=== PATIENT | female | born 1970 | race Caucasian/White ===

== ENCOUNTER 2019-08-31 17:00 | Outpatient (RCR) | payer OTHER, SELFPAY ==
--- NOTE | 2019-07-25 07:55 | HP.PTEVAL ---
Patient's Visit Information DELLA PEREZ is a 48 year old F referred to Physical Therapy by Karen Fairbanks NP-C with a diagnosis of OA,HIPS,KNEES,ANKLE BILATERAL. Date of Evaluation: 07/25/19 Physical Therapist: Esteban Alexis, PT, Cert MDT, OCS - Visit Plan Frequency: 2x /Week Duration: 4 Weeks Plan: PT INTERVENTIONS WITH AQUATIC PT ROM HIP/KNEES/ANKLE/LUMBAR,STRENGTHENING BLE,DLS - Subjective Findings: This 48 y/o female presents to physical therapy with pain knee ,ankle and back. Patient has h/o lumbar surgery to remove cyst Apr 2019 and had left knee arthroscpic menisectomy .Patient did have prior PT after both surgery. Patient has had arthritic pain influence symptoms in knee/back and ankles. Aggravating factors walking,standing,stairs,bending ,lifting unble to squat and difficulty to kneel. Alleviating factors MEDS.AM is worse with inactivity. Patient sleeping okay at night. Denies parathesia/tingling. Patient has had prior diagnostics in past yeasr. Patient has had lumbar injections in knee ,and pain management with epidural injections. Pateint pain affects job demand and ADLS/housework tasks. Patient condition affects QOL.PMH: as above RA,osteopenia,fibromayalgia. SOCIAL: single. VOCATION: Medial assist - Pain Left Knee Pain Intensity (Out of 10): 4 Pain Intensity Range: 10 Bilateral Ankle Pain Intensity (Out of 10): 4 Pain Intensity Range: 10 Bilateral Back Pain Intensity (Out of 10): 6 Pain Intensity Range: 10 Comment: standing - Objective POSTURE: mild foward posture ,hips/knees flexed foward. GAIT: reciprocal pattern. NEURO: denies parathesia/tingling ,reflexes L3-4,L4-5,L5-S1 1/3. SYMMTRIES: align. PALPATION: TENDER L-S. LUMBAR ROM: flexion mod loss,extension mod loss pain,side glides mod loss pain. FLEXABLITY: hams min tight,piriformis mild tight. HIP IR: 40 degrees. MMT: quads/hams 4-/5,hip flexion 4-/5,ankle 4/5. ANKLE ROM: DF 0 ,PF 60 degrres,IN 35 degrees - Special Tests L/S Slump test left side: Negative L/S Slump test right side: Negative L/S Left Straight Leg Raise: Negative L/S Right Straight Leg Raise: Negative Lumbar Standing: Flexion - Mechanical Response: No effect Lumbar Standing: Flexion - Symptoms During Testing: Increases Lumbar Standing: Flexion - Symptoms After Testing: No worse Lumbar Standing: Extension - Mechanical Response: No effect Lumbar Standing: Extension - Symptoms During Testing: Increases Lumbar Standing: Extension - Symptoms After Testing: No worse Lumbar Standing: Right Side Glides - Mechanical Response: No effect Lumbar Standing: Right Side [place] - Symptoms During Testing: Increases Lumbar Standing: Right Side [place] - Symptoms After Testing: No worse Lumbar Standing: Left Side [place] - Mechanical Response: No effect Lumbar Standing: Left Side [place] - Symptoms During Testing: Increases Lumbar Standing: Left Side [place] - Symptoms After Testing: No worse - Goals Goal 1:: Patient be Independant with Aquatic PT Goal Time Frame: 4-6 Weeks Goal 2:: Patient decrease pain hip ,ankle,hips ,back by 50% or> to improve QOL. Goal Time Frame: 4-6 Weeks Goal 3:: Patient increase strength of bilteral LE by 4/5 to improve gait and function with ADLS'/job demands. Goal Time Frame: 4-6 Weeks Goal 4:: Patient to improve lumbar ROM and LE for functin of recovery. Goal Time Frame: 4-6 Weeks Goal 5:: Patient improve LFES score by 5-10 points or > to improve QOL. Goal Time Frame: 4-6 Weeks - Rehabilitation Potential Physical Therapy Diagnosis: This patient has pain in back,knees ,hip and ankle with OA and h/o of left knee surgery and lumbar surgery with pain,decrease ROM hip/knees.lumbar,decrease strength impairs function with walking and standing thus benifit from skilled PT Rehabilitation Potential: Good - Anticipated Interventions Patient/Client Instruction: Educate patient on: Condition, Plan of Care For the Purpose of:: To decrease pain, To increase ROM, To improve muscle performance and motor function, To improve ability to perform ADL's, To increase tolerance to activity/condition/position, To improve performance and independence with ADL's, To improve health of tissue, To decrease soft tissue restriction, To increase flexibility/ROM, To improve health and function, To improve ability to perform tasks related to life management Therapeutic Exercise to Include: Strength training, Flexibilty training, In an aquatic setting, Passive ROM, Active ROM Comment: BLE ANKLE/HIP/KNEES For the Purpose of:: To decrease pain, To increase ROM, To improve muscle performance and motor function, To improve ability to perform ADL's, To increase tolerance to activity/condition/position, To improve ability of physical actions for home/community/work/leisure, To improve health of tissue, To decrease soft tissue restriction, To increase flexibility/ROM, To reduce risk of recurrence, To improve ability to perform tasks related to life management Thank you for the opportunity to evaluate your patient. For Medicare and Medicare HMO plans, please review the plan of care and approve it. It will need to be FAXED BACK to us at [phone] for Medicare purposes. For Medicare only, by signing this I certify the plan of care. Please let me know if there are questions or concerns regarding this plan of care. Physician Signature: Date:
--- NOTE | 2019-08-31 17:30 | HP.PTDCSUM ---
HP - PT D/C Summary It has been my pleasure to treat DELLA PEREZ under orders from Karen Fairbanks NP-C, for the diagnosis of OA,HIPS,KNEES,ANKLE BILATERAL for a total of 8 visit(s). Discharge Date: 08/31/19 Please see the following information for a summary of their discharge status. - Subjective Subjective: Patient is doing well ,less pain water ex's helped - Pain Left Knee Pain Intensity (Out of 10): 3 Bilateral Ankle Pain Intensity (Out of 10): 3 Bilateral Back Pain Intensity (Out of 10): 4 - Overall Improvement % Improvement: 50 - Objective Objective/Function: POSTURE: MILD POSTURE KNEE VALGUS. GAIT: MILD FOWARD POSTURE RECIPROCAL KHALIDA. ROM: HIP FLEXON DEGREES 100 ,KNEE 0-125 DEGREES SUPINE. MMT: QUADS/HAMS 4/5,HIP FLEXION 4-/5 - Goals Goal 1:: Patient be Independant with Aquatic PT Goal Progress: Goal Met Goal 2:: Patient decrease pain hip ,ankle,hips ,back by 50% or> to improve QOL. Goal 3:: Patient increase strength of bilteral LE by 4/5 to improve gait and function with ADLS'/job demands. Goal Progress: Goal Met Goal 4:: Patient to improve lumbar ROM and LE for functin of recovery. Goal Progress: Goal Met Goal 5:: Patient improve LFES score by 5-10 points or > to improve QOL. Goal Progress: Goal Met - Plan Plan: D/C TO HEP AND AQUATIC PROGRAM - D/C Information Discharge Comments: Aquatic therapy If there are questions or concerns regarding this patient's physical therapy, please feel free to call me at [phone]. Thank you for the referral of this patient. Sincerely, Esteban Alexis, PT, Cert MDT, OCS
== END 2019-08-31 19:00 | disposition home or self-care (01) ==
LOC: PT 17:00
PROVIDERS: Family Provider Family Medicine; PCP Family Medicine; Referring Provider Nurse Practitioner Family; Visit Provider Nurse Practitioner Family
DX: M16.0 Bilateral primary osteoarthritis of hip (principal); M17.0 Bilateral primary osteoarthritis of knee; M19.072 Primary osteoarthritis, left ankle and foot; M19.071 Primary osteoarthritis, right ankle and foot
CPT/HCPCS: 97113; 97162; 97530